=== PATIENT | male | born 2005 | race Caucasian/White ===

== ENCOUNTER 2024-05-21 08:08 | Inpatient (IN) | payer BC ==
[2024-05-21] MEDS: Sodium Chloride 0.9% 1,000 ML IV ONE (09:35)
[2024-05-21] MEDS: Sodium Chloride 0.9% 2.5 ML Syringe FLUSH PRN (09:35)
[2024-05-21] MEDS: Sodium Chloride 0.9% 10 ML Syringe FLUSH PRN (09:35)
[2024-05-21] MEDS: Morphine 2 MG/ML SYRINGE IVPUSH ONE (09:35)
[2024-05-21] MEDS: Ondansetron 4 MG/2 ML SDV IVPUSH ONE (09:36)
[2024-05-21 09:41] LABS: BASOPHILS ABSOLUTE AUTO 0.03 K/uL (0.00-0.20); BASOPHILS PERCENT AUTO 0.2 % (0.0-1.0); EOSINOPHILS ABSOLUTE AUTO 0.06 K/uL (0.00-0.45); EOSINOPHILS PERCENT AUTO 0.4 % (0.0-6.0); HEMATOCRIT 40.5 % (42.0-52.0); HEMOGLOBIN 14.4 g/dL (14.0-18.0); IMMATURE GRAN ABSOLUTE AUTO 0.07 K/uL (0.00-0.05); IMMATURE GRAN PERCENT AUTO 0.5 % (0.0-0.4); LYMPHOCYTES ABSOLUTE AUTO 0.91 K/uL (1.00-4.80); LYMPHOCYTES PERCENT AUTO 5.9 % (24.0-44.0); MEAN CORPUSCULAR HEMOGLOBIN 30.9 pg (28.0-32.0); MEAN CORPUSCULAR HGB CONC 35.6 g/dL (32.0-36.0); MEAN CORPUSCULAR VOLUME 86.9 fL (83.0-99.0); MEAN PLATELET VOLUME 8.6 fL (9.4-12.4); MONOCYTES ABSOLUTE AUTO 0.83 K/uL (0.00-0.80); MONOCYTES PERCENT AUTO 5.3 % (0.0-8.0); NEUTROPHILS ABSOLUTE AUTO 13.65 K/uL (1.80-7.70); NEUTROPHILS PERCENT AUTO 87.7 % (41.0-71.0); PLATELET COUNT,PLT 243 K/uL (150-400); RED BLOOD CELL COUNT 4.66 M/uL (4.52-5.90); WHITE BLOOD CELL COUNT,WBC 15.55 K/uL (3.9-11.3)
[2024-05-21] MEDS: cefTRIAXone 1 GM in Sodium Chloride 0.9% 50 ML IV ONE (09:48)
[2024-05-21 10:04] LABS: A/G RATIO 1.1 (0.9-1.6); ALBUMIN 4.2 g/dL (3.4-5.0); C-REACTIVE PROTEIN 2.29 mg/dL (<0.3); CARBON DIOXIDE,CO2 23.3 mmol/L (21.0-32.0); CREATININE 0.9 mg/dL (0.8-1.3); EST CRCL DRUG DOSING (CG) 121.39 mL/min; POTASSIUM,K 3.8 mmol/L (3.5-5.1); PROTEIN TOTAL,TP 8.1 g/dL (6.4-8.2)
[2024-05-21 10:07] LABS: LACTIC ACID 0.8 mmol/L (0.4-2.0)
[2024-05-21] MEDS ORDERED: dexmedeTOMIDine HCl 200 MCG/2 ML SDV ONE (11:54)
[2024-05-21] MEDS ORDERED: fentaNYL 100 MCG/2 ML SDV ONE (11:54)
[2024-05-21] MEDS ORDERED: Water For Injection, Sterile 20 ML ONE (11:54)
[2024-05-21] MEDS ORDERED: propofoL 50 ML ONE ×2 (11:54→12:40)
[2024-05-21] MEDS ORDERED: Ketamine HCL/NACL, ISO-OSM 50 MG/5 ML Syringe ONE (12:24)
[2024-05-21] MEDS ORDERED: Bupivacaine 0.5% 30 ML SDV ONE (12:54)
[2024-05-21] MEDS: fentaNYL 50 MCG/ML SDV IVPUSH PRN (13:51)
[2024-05-21] MEDS: HYDROmorphone 1 MG/ML Syringe IVPUSH ONE (14:00)
[2024-05-21] MEDS: Ketorolac 30 MG/ML SDV IVPUSH ONE (14:17)
[2024-05-21] MEDS ORDERED: Polyethylene Glycol 3350 Powder 17 GM Packet PO PRN (15:06)
[2024-05-21] MEDS ORDERED: Sennosides/Docusate Sodium 50-8.6 MG Tab PO PRN (15:06)
[2024-05-21] MEDS ORDERED: Naloxone 0.4 MG/ML SDV IVPUSH PRN (15:06)
[2024-05-21] MEDS ORDERED: Ondansetron 4 MG Tab.DIS PO PRN (15:06)
[2024-05-21] MEDS: fentaNYL 50 MCG/ML SDV ONE (15:09)
[2024-05-21] MEDS: HYDROmorphone 1 MG/ML Syringe ONE (15:09)
[2024-05-21] MEDS: Morphine 2 MG/ML SYRINGE IVPUSH PRN (15:26)
[2024-05-21] MEDS: Enoxaparin 40 MG/0.4 ML Syringe SUBCUT SCH (15:44)
[2024-05-21] MEDS: Acetaminophen/HYDROcodone 325-5 MG Tab PO PRN (17:01)
[2024-05-21] MEDS: VANCOmycin 2 GM/400 ML 2 GM in Premix Bag 1 BAG IV ONE (18:49)
[2024-05-21] MEDS: Acetaminophen 325 MG Tab PO PRN (23:53)
[2024-05-22 06:03] LABS: BASOPHILS ABSOLUTE AUTO 0.04 K/uL (0.00-0.20); BASOPHILS PERCENT AUTO 0.3 % (0.0-1.0); EOSINOPHILS ABSOLUTE AUTO 0.01 K/uL (0.00-0.45); EOSINOPHILS PERCENT AUTO 0.1 % (0.0-6.0); HEMATOCRIT 38.6 % (42.0-52.0); HEMOGLOBIN 13.5 g/dL (14.0-18.0); IMMATURE GRAN ABSOLUTE AUTO 0.05 K/uL (0.00-0.05); IMMATURE GRAN PERCENT AUTO 0.4 % (0.0-0.4); LYMPHOCYTES ABSOLUTE AUTO 1.43 K/uL (1.00-4.80); LYMPHOCYTES PERCENT AUTO 11.9 % (24.0-44.0); MEAN CORPUSCULAR HEMOGLOBIN 30.8 pg (28.0-32.0); MEAN CORPUSCULAR VOLUME 88.1 fL (83.0-99.0); MEAN PLATELET VOLUME 8.9 fL (9.4-12.4); MONOCYTES ABSOLUTE AUTO 1.05 K/uL (0.00-0.80); MONOCYTES PERCENT AUTO 8.8 % (0.0-8.0); NEUTROPHILS ABSOLUTE AUTO 9.39 K/uL (1.80-7.70); NEUTROPHILS PERCENT AUTO 78.5 % (41.0-71.0); PLATELET COUNT,PLT 232 K/uL (150-400); RED BLOOD CELL COUNT 4.38 M/uL (4.52-5.90); WHITE BLOOD CELL COUNT,WBC 11.97 K/uL (3.9-11.3)
[2024-05-22 06:33] LABS: A/G RATIO 0.8 (0.9-1.6); ALBUMIN 3.2 g/dL (3.4-5.0); BILIRUBIN TOTAL 0.9 mg/dL (0.2-1.0); CALCIUM 8.4 mg/dL (8.5-10.1); CARBON DIOXIDE,CO2 25.6 mmol/L (21.0-32.0); EST CRCL DRUG DOSING (CG) 109.25 mL/min; POTASSIUM,K 3.7 mmol/L (3.5-5.1); PROTEIN TOTAL,TP 7.1 g/dL (6.4-8.2)
[2024-05-22] MEDS: cefTRIAXone 1 GM in Sodium Chloride 0.9% 50 ML IV SCH (08:23)
[2024-05-23 06:08] LABS: BASOPHILS ABSOLUTE AUTO 0.04 K/uL (0.00-0.20); BASOPHILS PERCENT AUTO 0.3 % (0.0-1.0); EOSINOPHILS ABSOLUTE AUTO 0.14 K/uL (0.00-0.45); EOSINOPHILS PERCENT AUTO 1.2 % (0.0-6.0); HEMATOCRIT 40.6 % (42.0-52.0); HEMOGLOBIN 14.1 g/dL (14.0-18.0); IMMATURE GRAN ABSOLUTE AUTO 0.04 K/uL (0.00-0.05); IMMATURE GRAN PERCENT AUTO 0.3 % (0.0-0.4); LYMPHOCYTES ABSOLUTE AUTO 1.39 K/uL (1.00-4.80); LYMPHOCYTES PERCENT AUTO 11.5 % (24.0-44.0); MEAN CORPUSCULAR HEMOGLOBIN 30.7 pg (28.0-32.0); MEAN CORPUSCULAR HGB CONC 34.7 g/dL (32.0-36.0); MEAN CORPUSCULAR VOLUME 88.5 fL (83.0-99.0); MEAN PLATELET VOLUME 8.9 fL (9.4-12.4); MONOCYTES ABSOLUTE AUTO 1.03 K/uL (0.00-0.80); MONOCYTES PERCENT AUTO 8.5 % (0.0-8.0); NEUTROPHILS ABSOLUTE AUTO 9.45 K/uL (1.80-7.70); NEUTROPHILS PERCENT AUTO 78.2 % (41.0-71.0); PLATELET COUNT,PLT 241 K/uL (150-400); RED BLOOD CELL COUNT 4.59 M/uL (4.52-5.90); WHITE BLOOD CELL COUNT,WBC 12.09 K/uL (3.9-11.3)
[2024-05-23 06:35] LABS: A/G RATIO 0.7 (0.9-1.6); ALBUMIN 3.3 g/dL (3.4-5.0); BILIRUBIN TOTAL 0.6 mg/dL (0.2-1.0); CARBON DIOXIDE,CO2 27.3 mmol/L (21.0-32.0); EST CRCL DRUG DOSING (CG) 109.25 mL/min; POTASSIUM,K 4.3 mmol/L (3.5-5.1); PROTEIN TOTAL,TP 7.9 g/dL (6.4-8.2)
[2024-05-23] MEDS: Sodium Chloride 0.9% 250 ML ONE (12:48)
[2024-05-24 05:46] LABS: BASOPHILS ABSOLUTE AUTO 0.04 K/uL (0.00-0.20); BASOPHILS PERCENT AUTO 0.4 % (0.0-1.0); EOSINOPHILS ABSOLUTE AUTO 0.24 K/uL (0.00-0.45); EOSINOPHILS PERCENT AUTO 2.5 % (0.0-6.0); HEMATOCRIT 42.1 % (42.0-52.0); HEMOGLOBIN 14.6 g/dL (14.0-18.0); IMMATURE GRAN ABSOLUTE AUTO 0.03 K/uL (0.00-0.05); IMMATURE GRAN PERCENT AUTO 0.3 % (0.0-0.4); LYMPHOCYTES ABSOLUTE AUTO 1.52 K/uL (1.00-4.80); LYMPHOCYTES PERCENT AUTO 16.1 % (24.0-44.0); MEAN CORPUSCULAR HEMOGLOBIN 30.8 pg (28.0-32.0); MEAN CORPUSCULAR HGB CONC 34.7 g/dL (32.0-36.0); MEAN CORPUSCULAR VOLUME 88.8 fL (83.0-99.0); MEAN PLATELET VOLUME 8.9 fL (9.4-12.4); MONOCYTES ABSOLUTE AUTO 1.04 K/uL (0.00-0.80); NEUTROPHILS ABSOLUTE AUTO 6.55 K/uL (1.80-7.70); NEUTROPHILS PERCENT AUTO 69.7 % (41.0-71.0); PLATELET COUNT,PLT 278 K/uL (150-400); RED BLOOD CELL COUNT 4.74 M/uL (4.52-5.90); WHITE BLOOD CELL COUNT,WBC 9.42 K/uL (3.9-11.3)
[2024-05-24 06:16] LABS: A/G RATIO 0.7 (0.9-1.6); ALBUMIN 3.4 g/dL (3.4-5.0); BILIRUBIN TOTAL 0.8 mg/dL (0.2-1.0); CALCIUM 9.6 mg/dL (8.5-10.1); CARBON DIOXIDE,CO2 25.9 mmol/L (21.0-32.0); EST CRCL DRUG DOSING (CG) 109.25 mL/min; POTASSIUM,K 4.5 mmol/L (3.5-5.1); PROTEIN TOTAL,TP 8.4 g/dL (6.4-8.2)
== END 2024-05-24 12:45 | disposition home or self-care (01) | DRG 317 ==
LOC: MW.ED 08:08 → OBSVTOIN 11:20 → MW.MS 11:20 → MW.ED 12:15 → MW.MS 05-23 11:20
PROVIDERS: ADMIT Internal Medicine; ATTEND Internal Medicine
PROC: 0M9P0ZZ Drainage of Left Knee Bursa and Ligament, Open Approach (ICD-10-PCS; principal; 2024-05-21 13:00)
DX: M71.162 Other infective bursitis, left knee (principal); L03.116 Cellulitis of left lower limb; B95.4 Other streptococcus as the cause of diseases classified elsewhere; Z87.891 Personal history of nicotine dependence
CPT/HCPCS: 01320; 36415; 73562-26-LT; 73562-LT; 80053; 80202; 83605; 85025; 85652; 86140; 87040; 87070; 87075; 87205; 96365; 96375; 99284; 99285-25; A9270-GY; J0131; J0665; J0696; J1170; J1650; J1885; J2270; J2405; J2704; J3010; J3370; J3372; J3490; J7030; J7050